=== PATIENT | female | born 1945 | race Caucasian/White ===

== ENCOUNTER 2024-05-19 22:08 | Emergency (ER) | payer SELFPAY ==
[~2024-05-19] VITALS: Ht 167.6 cm; Wt 80.0 kg
[2024-05-19 22:10] VITALS: BP 139/70; PULSE 64; RESP 18; TEMP 97.9; O2SAT 97
== END 2024-05-19 23:20 | disposition left against medical advice (07) ==
LOC: ER 22:08
DX: M25.561 Pain in right knee (principal); Z53.21 Procedure and treatment not carried out due to patient leaving prior to being seen by health care provider
CPT/HCPCS: 99283

== ENCOUNTER 2024-05-20 03:19 | Emergency (ER) | payer OTHER ==
[~2024-05-20] VITALS: Ht 172.7 cm; Wt 82.0 kg
[2024-05-20 03:22] VITALS: O2SAT 98
[2024-05-20 05:32] LABS: BASOPHILS % 0.7 % (0.0-2.0); EOSINOPHILS % 1.9 % (0.0-5.0); HEMATOCRIT. 39.9 % (36.0-48.0); HEMOGLOBIN. 13.3 g/dL (12.0-16.0); LYMPHOCYTES % 26.4 % (20.0-50.0); MEAN CORPUSCULAR HGB CONC 33.4 g/dL (31.0-37.0); MEAN CORPUSCULAR VOLUME 95.9 fL (81.0-99.0); MEAN PLATELET VOLUME 8.6 fl (7.4-10.4); MONOCYTES % 9.5 % (2.0-8.0); NEUTROPHILS % 61.5 % (40.0-76.0); PLATELET 199 x1000/uL (130-400); RED BLOOD CELL COUNT 4.16 mill/uL (4.2-5.4); RED CELL DISTRIBUTION WIDTH 13.2 % (11.6-14.6); WHITE BLOOD COUNT 6.2 x1000/uL (4.5-11.0)
[2024-05-20 05:40] LABS: CHLORIDE 108 mEq/L (98-107); POTASSIUM 3.5 mEq/L (3.5-5.1); SODIUM 143 mEq/L (136-145)
[2024-05-20 05:41] LABS: CALCIUM 9.8 mg/dL (8.7-10.4); CARBON DIOXIDE 31 mEq/L (21-32)
[2024-05-20 05:45] LABS: CREATININE 0.9 mg/dL (0.6-1.0)
[2024-05-20 05:46] LABS: GLUCOSE 87 mg/dL (70-105); UREA NITROGEN BLOOD 18 mg/dL (9-23)
[2024-05-20 05:47] LABS: ACETAMINOPHEN < 2 ug/mL (10-30); TROPONIN I HIGH SENSITIVITY 5 ng/L (3.0-34)
[2024-05-20 05:53] LABS: ETHANOL BLOOD < 10 mg/dL (<10)
[2024-05-20 06:00] VITALS: BP 193/63; PULSE 52; RESP 17; TEMP 36.72516; O2SAT 98
[2024-05-20] MEDS: SODIUM CHLORIDE 0.9% 1,000 ML IV ONE (06:00)
== END 2024-05-20 11:00 | disposition left against medical advice (07) ==
LOC: ER 03:19 → CANBEDREQ 14:01
DX: G93.40 Encephalopathy, unspecified (principal); M25.562 Pain in left knee; M25.561 Pain in right knee; F03.90 Unspecified dementia, unspecified severity, without behavioral disturbance, psychotic disturbance, mood disturbance, and anxiety; I10 Essential (primary) hypertension
CPT/HCPCS: 80048; 80307; 80329; 80320; 85025; 84484; 36415; 71045; 73560; 70450; 93005; 99285; J7030; G0480